=== PATIENT | female | born 1935 | race Caucasian/White ===

== ENCOUNTER 2019-11-20 14:56 | Emergency (ER) | payer SELFPAY ==
[~2019-11-20] VITALS: Ht 162.6 cm; Wt 80.0 kg
[2019-11-20 15:50] VITALS: BP 161/48
[2019-11-20 15:59] LABS: MEAN CORPUSCULAR HEMOGLOBIN 30.9 pg (27.0-34.8); MEAN CORPUSCULAR VOLUME 93.7 fL (80-100); MEAN PLATELET VOLUME 9.4 fL (7.4-10.4); PLATELET COUNT 263 x10^3/uL (130-400); RED CELL DISTRIBUTION WIDTH 14.4 % (9.6-15.2)
[2019-11-20 16:10] LABS: ANION GAP 6 mmol/L (5-15); CALCIUM 10.9 mg/dL (8.5-10.1); CHLORIDE 109 mmol/L (98-107); CREATININE 1.15 mg/dL (0.55-1.02)
--- NOTE | 2019-11-20 16:31 | NUR ---
PT IN BED, UNABLE TO AMBULATE DUE TO SORE ANKLE. PT REQUESTED THAT THIS NURSE CALL HER AND GIVE HIM AN UPDATE. [facility] - [phone]
[2019-11-20 16:43] LABS: MD YES
--- NOTE | 2019-11-20 16:45 | NUR ---
PT TO IMAGING AT THIS TIME.
[2019-11-20 16:55] LABS: LYMPH#(MANUAL) 1.04 x10^3/uL (1-3.4); LYMPHS% (MANUAL) 7 % (22-44); MONOS#(MANUAL) 1.63 x10^3/uL (0.3-2.7); MONOS% (MANUAL) 11 % (2-9); SEG#(MANUAL) 12.14 x10^3/uL (1.8-6.8); SEGS% (MANUAL) 82 % (42-75)
[2019-11-20 16:56] LABS: <PLATELET ESTIMATE> ADEQUATE; <PLT MORPHOLOGY> NORMAL PLT MORPH; <RBC MORPHOLOGY> NORMAL
--- NOTE | 2019-11-20 17:00 | NUR ---
dafne [facility] - [phone]
[2019-11-20 17:33] LABS: MICROSCOPIC NOT IND
--- NOTE | 2019-11-20 18:18 | NUR ---
daughter called and updated on patient plan of care and intent to discharge.
--- NOTE | 2019-11-20 18:55 | NUR ---
THROUGHPUT: [facility] TO TRANSPORT PT TO [facility] AT ~1910.
== END 2019-11-20 19:53 | disposition home or self-care (01) ==
LOC: ED 17:55
DX: S93.402A Sprain of unspecified ligament of left ankle, initial encounter (principal); R42 Dizziness and giddiness; D72.829 Elevated white blood cell count, unspecified; X58.XXXA Exposure to other specified factors, initial encounter; Y93.89 Activity, other specified; Y92.89 Other specified places as the place of occurrence of the external cause; Y99.8 Other external cause status
CPT/HCPCS: 36415; 70450; 71045; 80048; 81003; 82040; 85025; 93005; 99285

== ENCOUNTER 2019-12-18 18:38 | Inpatient (IN) | payer MEDICARE ==
[~2019-12-18] VITALS: Ht 167.6 cm; Wt 79.2 kg
[~2019-12-18 18:38] MED LIST: ACET325T26 PO; APIX5TAB PO; ATOR10TA9 PO; CHOL500045 PO; METO25TA91 PO; QUET25TA7 PO
--- NOTE | 2019-12-18 18:54 | NUR ---
Transfer from [facility]. Right DVT. C/O RLE swelling and pain. On Eliquis. Oriented to person and somewhat to place, but not to time or situation. Per [facility], this is her baseline. Placed on NIBP, pulse ox, and classroom monitor. Will continue to monitor.
[2019-12-18 19:21] LABS: MEAN CORPUSCULAR HEMOGLOBIN 30.4 pg (27.0-34.8); MEAN PLATELET VOLUME 8.7 fL (7.4-10.4); PLATELET COUNT 312 x10^3/uL (130-400); RED BLOOD COUNT 4.44 x10^6/uL (3.82-5.3); RED CELL DISTRIBUTION WIDTH 14.7 % (9.6-15.2)
--- NOTE | 2019-12-18 19:30 | NUR ---
Repositioned for comfort. Provided with blanket. No other needs.
[2019-12-18 19:32] LABS: ALANINE AMINOTRANSFERASE 16 U/L (12-78); ALBUMIN 2.1 g/dL (3.4-5.0); ANION GAP 6 mmol/L (5-15); CHLORIDE 108 mmol/L (98-107); CREATININE 0.77 mg/dL (0.55-1.02)
[2019-12-18 19:34] LABS: ALKALINE PHOSPHATASE 86 U/L (45-117); TOTAL PROTEIN 6.2 g/dL (6.4-8.2)
[2019-12-18 19:41] LABS: BASOPHILS # (AUTO) 0.05 x10^3/uL (0-0.1); BASOPHILS % (AUTO) 1 % (0-1); EOSINOPHILS % (AUTO) 4 % (1-7); LYMPHOCYTES # (AUTO) 1.77 x10^3/uL (1-3.4); LYMPHOCYTES % (AUTO) 16 % (22-44); MD SCAN; MONOCYTES # (AUTO) 1.45 x10^3/uL (0.2-0.8); MONOCYTES % (AUTO) 13 % (2-9); NEUTROPHILS # (AUTO) 7.74 x10^3/uL (1.8-6.8); NEUTROPHILS % (AUTO) 68 % (42-75)
--- NOTE | 2019-12-18 20:40 | NUR ---
[facility] at bedside examining patient.
[2019-12-18] MEDS ORDERED: HEPARIN 25,000 UNITS/250ML PMX 250 ML ONE (20:59)
[2019-12-18] MEDS ORDERED: HEPARIN 5,000 UNITS/ML, 1ML ONE (20:59)
[2019-12-18] MEDS ORDERED: MELATONIN 5 MG TABLET PO PRN (21:00)
[2019-12-18] MEDS ORDERED: ENALAPRILAT 1.25 MG/ML, 2ML IVPush PRN (21:00)
[2019-12-18] MEDS ORDERED: ONDANSETRON ODT 4 MG PO PRN (21:00)
[2019-12-18] MEDS ORDERED: ACETAMINOPHEN 325 MG TABLET PO PRN (21:00)
[2019-12-18] MEDS ORDERED: ONDANSETRON 2MG/ML, 2ML IVPush PRN (21:00)
[2019-12-18] MEDS ORDERED: HEPARIN 5,000 UNITS/ML, 1ML IV ONE (21:00)
[2019-12-18] MEDS ORDERED: hydrALAzine 20 MG/ML, 1ML IVPush PRN (21:00)
[2019-12-18 21:01] LABS: INTERNATIONAL NORMALIZED RATIO 1.1 (0.93-1.1); PROTHROMBIN TIME 11.7 Seconds (9.6-11.5)
[2019-12-18] MEDS: HEPARIN 25,000 UNITS/250ML PMX 250 ML IV PRN (21:14)
[2019-12-18] MEDS ORDERED: QUETIAPINE 25MG TABLET ONE (21:25)
[2019-12-18] MEDS ORDERED: DOCUSATE 100 MG CAPSULE ONE (21:25)
[2019-12-18] MEDS: DOCUSATE 100 MG CAPSULE PO SCH (21:29)
[2019-12-18] MEDS: QUETIAPINE 25MG TABLET PO SCH (21:30)
--- NOTE | 2019-12-18 21:30 | NUR ---
Yelena and josé miguel admin. Patient requesting to speak with her parents that she states are 89 years old. Pt. asking if the people sleeping in the mcintyre will be there all night. RN reassured patient that her parents are no 89 and have likely passed and that no one is asleep in the hallway. VSS.
[2019-12-18] MEDS: ATORVASTATIN 10 MG TABLET PO SCH (21:45)
--- NOTE | 2019-12-18 21:47 | NUR ---
Report to ANJANA Sullivan.
[2019-12-18 22:46] VITALS: BP 145/82
[2019-12-19 01:52] VITALS: BP 139/82
[2019-12-19 03:23] LABS: BASOPHILS # (AUTO) 0.04 x10^3/uL (0-0.1); BASOPHILS % (AUTO) 0 % (0-1); EOSINOPHILS # (AUTO) 0.38 x10^3/uL (0-0.4); EOSINOPHILS % (AUTO) 4 % (1-7); LYMPHOCYTES # (AUTO) 1.94 x10^3/uL (1-3.4); LYMPHOCYTES % (AUTO) 19 % (22-44); MD NO; MEAN CORPUSCULAR HEMOGLOBIN 30.4 pg (27.0-34.8); MEAN PLATELET VOLUME 8.8 fL (7.4-10.4); MONOCYTES # (AUTO) 1.32 x10^3/uL (0.2-0.8); MONOCYTES % (AUTO) 13 % (2-9); NEUTROPHILS # (AUTO) 6.82 x10^3/uL (1.8-6.8); NEUTROPHILS % (AUTO) 65 % (42-75); PLATELET COUNT 292 x10^3/uL (130-400); RED BLOOD COUNT 4.34 x10^6/uL (3.82-5.3)
[2019-12-19 03:33] LABS: ANION GAP 3 mmol/L (5-15); CALCIUM 9.7 mg/dL (8.5-10.1); CHLORIDE 109 mmol/L (98-107); CREATININE 0.65 mg/dL (0.55-1.02)
[2019-12-19] MEDS: METOPROLOL TARTRATE 25 MG TAB PO SCH ×2 (06:21→18:18)
[2019-12-19 07:48] VITALS: BP 119/55
[2019-12-19] MEDS: DOCUSATE 100 MG CAPSULE PO SCH ×2 (10:08→20:27)
[2019-12-19] MEDS: QUETIAPINE 25MG TABLET PO SCH ×2 (10:08→20:28)
[2019-12-19 12:48] LABS: INTERNATIONAL NORMALIZED RATIO 1.09 (0.93-1.1); PROTHROMBIN TIME 11.6 Seconds (9.6-11.5)
[2019-12-19 13:15] VITALS: BP 124/71
[2019-12-19] MEDS ORDERED: WARFARIN 5 MG TABLET PO-COUM ONE (18:00)
[2019-12-19 18:16] VITALS: BP 131/85
[2019-12-19 19:37] VITALS: BP 127/74
[2019-12-19] MEDS: ATORVASTATIN 10 MG TABLET PO SCH (20:28)
[2019-12-20 00:55] VITALS: BP 131/71
[2019-12-20] MEDS: METOPROLOL TARTRATE 25 MG TAB PO SCH ×2 (05:45→18:06)
[2019-12-20 06:44] LABS: BASOPHILS # (AUTO) 0.03 x10^3/uL (0-0.1); BASOPHILS % (AUTO) 0 % (0-1); EOSINOPHILS # (AUTO) 0.15 x10^3/uL (0-0.4); EOSINOPHILS % (AUTO) 2 % (1-7); LYMPHOCYTES # (AUTO) 1.57 x10^3/uL (1-3.4); LYMPHOCYTES % (AUTO) 15 % (22-44); MD NO; MEAN CORPUSCULAR HGB CONC 32.2 g/dL (32.4-35.8); MEAN PLATELET VOLUME 8.7 fL (7.4-10.4); MONOCYTES # (AUTO) 1.29 x10^3/uL (0.2-0.8); MONOCYTES % (AUTO) 12 % (2-9); NEUTROPHILS # (AUTO) 7.37 x10^3/uL (1.8-6.8); NEUTROPHILS % (AUTO) 71 % (42-75); PLATELET COUNT 326 x10^3/uL (130-400); RED BLOOD COUNT 4.36 x10^6/uL (3.82-5.3); RED CELL DISTRIBUTION WIDTH 14.6 % (9.6-15.2)
[2019-12-20 06:48] LABS: INTERNATIONAL NORMALIZED RATIO 1.17 (0.93-1.1); PROTHROMBIN TIME 12.4 Seconds (9.6-11.5)
[2019-12-20] MEDS ORDERED: POTASSIUM CHLORIDE 20 MEQ TAB.ER.PRT PO ONE ×2 (08:00→12:00)
[2019-12-20 08:03] VITALS: BP 123/83
[2019-12-20] MEDS: QUETIAPINE 25MG TABLET PO SCH ×2 (08:37→20:42)
[2019-12-20] MEDS: DOCUSATE 100 MG CAPSULE PO SCH ×2 (08:37→20:42)
[2019-12-20 13:22] VITALS: BP 143/89
[2019-12-20] MEDS: HEPARIN 25,000 UNITS/250ML PMX 250 ML IV PRN (15:32)
[2019-12-20] MEDS ORDERED: WARFARIN 5 MG TABLET PO-COUM ONE (18:00)
[2019-12-20 18:07] VITALS: BP 123/82
[2019-12-20 19:20] VITALS: BP 136/76
[2019-12-20] MEDS: ATORVASTATIN 10 MG TABLET PO SCH (20:42)
[2019-12-21 00:43] VITALS: BP 139/80
[2019-12-21 05:39] LABS: INTERNATIONAL NORMALIZED RATIO 1.45 (0.93-1.1); PROTHROMBIN TIME 15.4 Seconds (9.6-11.5)
[2019-12-21 05:40] LABS: MEAN CORPUSCULAR HEMOGLOBIN 30.5 pg (27.0-34.8); MEAN CORPUSCULAR HGB CONC 33.2 g/dL (32.4-35.8); MEAN PLATELET VOLUME 9.6 fL (7.4-10.4); PLATELET COUNT 330 x10^3/uL (130-400); RED BLOOD COUNT 4.29 x10^6/uL (3.82-5.3); RED CELL DISTRIBUTION WIDTH 15.1 % (9.6-15.2)
[2019-12-21 05:42] LABS: ANION GAP 7 mmol/L (5-15); CALCIUM 10.1 mg/dL (8.5-10.1); CHLORIDE 103 mmol/L (98-107)
[2019-12-21 05:43] LABS: CREATININE 0.53 mg/dL (0.55-1.02)
[2019-12-21 06:02] LABS: BASOPHILS # (AUTO) 0.05 x10^3/uL (0-0.1); BASOPHILS % (AUTO) 1 % (0-1); EOSINOPHILS # (AUTO) 0.16 x10^3/uL (0-0.4); EOSINOPHILS % (AUTO) 1 % (1-7); LYMPHOCYTES # (AUTO) 1.76 x10^3/uL (1-3.4); LYMPHOCYTES % (AUTO) 15 % (22-44); MD SCAN; MONOCYTES # (AUTO) 1.46 x10^3/uL (0.2-0.8); MONOCYTES % (AUTO) 13 % (2-9); NEUTROPHILS # (AUTO) 8.03 x10^3/uL (1.8-6.8); NEUTROPHILS % (AUTO) 70 % (42-75)
[2019-12-21 06:16] VITALS: BP 145/80
[2019-12-21] MEDS: METOPROLOL TARTRATE 25 MG TAB PO SCH ×2 (06:18→17:43)
[2019-12-21] MEDS: DOCUSATE 100 MG CAPSULE PO SCH ×2 (08:39→20:15)
[2019-12-21] MEDS: QUETIAPINE 25MG TABLET PO SCH ×2 (08:42→20:15)
[2019-12-21 13:36] VITALS: BP 114/69
[2019-12-21 17:40] VITALS: BP 141/79
[2019-12-21] MEDS ORDERED: WARFARIN 3 MG TABLET PO-COUM ONE (18:00)
[2019-12-21 19:23] VITALS: BP 104/65
[2019-12-21] MEDS: ATORVASTATIN 10 MG TABLET PO SCH (20:15)
[2019-12-22 01:40] VITALS: BP 130/84
[2019-12-22 05:56] VITALS: BP 122/76
[2019-12-22] MEDS: METOPROLOL TARTRATE 25 MG TAB PO SCH ×2 (06:04→17:38)
[2019-12-22 07:18] LABS: ANION GAP 5 mmol/L (5-15); CALCIUM 10.1 mg/dL (8.5-10.1); CHLORIDE 107 mmol/L (98-107); CREATININE 0.58 mg/dL (0.55-1.02)
[2019-12-22 07:20] LABS: MEAN CORPUSCULAR HEMOGLOBIN 30.1 pg (27.0-34.8); MEAN CORPUSCULAR HGB CONC 32.7 g/dL (32.4-35.8); MEAN PLATELET VOLUME 8.9 fL (7.4-10.4); PLATELET COUNT 336 x10^3/uL (130-400); RED BLOOD COUNT 4.08 x10^6/uL (3.82-5.3); RED CELL DISTRIBUTION WIDTH 14.5 % (9.6-15.2)
[2019-12-22 07:29] LABS: INTERNATIONAL NORMALIZED RATIO 2.1 (0.93-1.1); PROTHROMBIN TIME 22.4 Seconds (9.6-11.5)
[2019-12-22 07:58] VITALS: BP 120/71
[2019-12-22] MEDS: HEPARIN 5,000 UNITS/ML, 1ML IV PRN ×2 (08:16→14:30)
[2019-12-22] MEDS: DOCUSATE 100 MG CAPSULE PO SCH ×2 (08:17→21:13)
[2019-12-22] MEDS: QUETIAPINE 25MG TABLET PO SCH ×2 (08:17→21:14)
[2019-12-22 08:26] LABS: BASOPHILS # (AUTO) 0.04 x10^3/uL (0-0.1); BASOPHILS % (AUTO) 0 % (0-1); EOSINOPHILS # (AUTO) 0.26 x10^3/uL (0-0.4); EOSINOPHILS % (AUTO) 2 % (1-7); LYMPHOCYTES # (AUTO) 1.82 x10^3/uL (1-3.4); LYMPHOCYTES % (AUTO) 17 % (22-44); MD SCAN; MONOCYTES % (AUTO) 14 % (2-9); NEUTROPHILS % (AUTO) 67 % (42-75)
[2019-12-22] MEDS ORDERED: POTASSIUM CHLORIDE 20 MEQ TAB.ER.PRT PO ONE (09:00)
[2019-12-22 12:37] VITALS: BP 128/71
[2019-12-22] MEDS ORDERED: WARFARIN 5 MG TABLET PO-COUM ONE (18:00)
[2019-12-22 18:46] VITALS: BP 109/72
[2019-12-22] MEDS: ATORVASTATIN 10 MG TABLET PO SCH (21:14)
[2019-12-23 00:19] VITALS: BP 125/77
[2019-12-23 05:52] VITALS: BP 141/75
[2019-12-23] MEDS: METOPROLOL TARTRATE 25 MG TAB PO SCH (05:55)
[2019-12-23 06:55] LABS: MEAN CORPUSCULAR HEMOGLOBIN 30.5 pg (27.0-34.8); MEAN PLATELET VOLUME 8.8 fL (7.4-10.4); PLATELET COUNT 330 x10^3/uL (130-400); RED BLOOD COUNT 4.02 x10^6/uL (3.82-5.3); RED CELL DISTRIBUTION WIDTH 14.8 % (9.6-15.2)
[2019-12-23 07:00] LABS: ANION GAP 5 mmol/L (5-15); CALCIUM 10.6 mg/dL (8.5-10.1); CHLORIDE 109 mmol/L (98-107); CREATININE 0.52 mg/dL (0.55-1.02)
[2019-12-23 07:02] LABS: INTERNATIONAL NORMALIZED RATIO 2.92 (0.93-1.1); PROTHROMBIN TIME 31.3 Seconds (9.6-11.5)
[2019-12-23 07:08] LABS: BASOPHILS # (AUTO) 0.05 x10^3/uL (0-0.1); BASOPHILS % (AUTO) 1 % (0-1); EOSINOPHILS # (AUTO) 0.32 x10^3/uL (0-0.4); EOSINOPHILS % (AUTO) 3 % (1-7); LYMPHOCYTES # (AUTO) 1.82 x10^3/uL (1-3.4); LYMPHOCYTES % (AUTO) 16 % (22-44); MD SCAN; MONOCYTES # (AUTO) 1.55 x10^3/uL (0.2-0.8); MONOCYTES % (AUTO) 13 % (2-9); NEUTROPHILS # (AUTO) 7.91 x10^3/uL (1.8-6.8); NEUTROPHILS % (AUTO) 68 % (42-75)
[2019-12-23 07:14] VITALS: BP 128/80
[2019-12-23] MEDS: QUETIAPINE 25MG TABLET PO SCH (08:14)
[2019-12-23] MEDS: DOCUSATE 100 MG CAPSULE PO SCH (08:14)
[2019-12-23] MEDS ORDERED: DOCU100C33 PO (10:55)
[2019-12-23] MEDS ORDERED: WARF5TAB2 PO (10:55)
[2019-12-23 12:02] VITALS: BP 133/77
[2019-12-23] MEDS ORDERED: WARFARIN 2 MG TABLET PO-COUM ONE (18:00)
== END 2019-12-23 16:03 | DRG 299 ==
LOC: ED 20:03 → SUATTDRO 20:23 → EDIP 20:23 → 3N 22:39
PROVIDERS: ADMIT Hospitalist; ATTEND Hospitalist
DX: I82.411 Acute embolism and thrombosis of right femoral vein (principal); I26.99 Other pulmonary embolism without acute cor pulmonale; I82.441 Acute embolism and thrombosis of right tibial vein; I82.511 Chronic embolism and thrombosis of right femoral vein; E78.5 Hyperlipidemia, unspecified; E87.6 Hypokalemia; F02.80 Dementia in other diseases classified elsewhere, unspecified severity, without behavioral disturbance, psychotic disturbance, mood disturbance, and anxiety; F32.9 Major depressive disorder, single episode, unspecified; G30.1 Alzheimer's disease with late onset; K21.9 Gastro-esophageal reflux disease without esophagitis; Z82.49 Family history of ischemic heart disease and other diseases of the circulatory system; Z86.711 Personal history of pulmonary embolism; Z79.01 Long term (current) use of anticoagulants; Z87.01 Personal history of pneumonia (recurrent)
CPT/HCPCS: 36415; 80048; 80053; 84132; 85025; 85520; 85610; 99285; G0378; J1644